=== PATIENT | male | born 1975 ===

== ENCOUNTER 2022-03-18 07:30 | Emergency (ER) | payer SELFPAY ==
--- NOTE | 2022-03-18 08:46 | Emergency Department Report ---
ED General Adult HPI - General Chief complaint: Urogenital-Male Stated complaint: SICK Time Seen by Provider: 03/18/22 08:29 Source: patient Mode of arrival: Ambulatory Limitations: Language Barrier - History of Present Illness Initial comments: Is a 47-year-old male who, EISL, speaks appropriate [place] for safe communication of symptoms, who presents for bilateral lower abdominal pain with hematuria pain is described at 5/10 sharp achy. Patient states history of renal stones. Patient denies nausea vomiting x1 cannot recall fever. Symptoms are exacerbated by movement and voiding. Symptoms are relieved by nothing tried. Patient states he feels sickly. Patient denies other history denies smoking Severity scale (0 -10): 9 - Related Data Previous Rx's Medication Instructions Recorded Last Taken Type Ketorolac [Toradol] 10 mg PO Q6H PRN #12 tab 03/18/22 Unknown Rx levoFLOXacin [Levaquin TAB] 500 mg PO DAILY 7 Days #7 tab 03/18/22 Unknown Rx Allergies Allergy/AdvReac Type Severity Reaction Status Date / Time No Known Allergies Allergy Unverified 03/18/22 07:39 ED Review of Systems ROS: Stated complaint: SICK Other details as noted in HPI Constitutional: malaise. denies: chills, fever Eyes: denies: eye pain, eye discharge, vision change ENT: denies: ear pain, throat pain Respiratory: denies: cough, shortness of breath, wheezing Cardiovascular: denies: chest pain, palpitations Endocrine: no symptoms reported Gastrointestinal: abdominal pain, nausea, vomiting. denies: diarrhea, constipation, melena Genitourinary: urgency, dysuria, frequency, hematuria. denies: discharge, testicular pain, testicular mass Musculoskeletal: denies: back pain, joint swelling, arthralgia Skin: denies: rash, lesions Neurological: denies: headache, weakness, paresthesias, vertigo Psychiatric: denies: anxiety, depression Hematological/Lymphatic: denies: easy bleeding, easy bruising ED Past Medical Hx - Past Medical History Previous Medical History?: Yes Additional medical history: KIDNEY STONES - Surgical History Past Surgical History?: No - Medications Home Medications: Home Medications Medication Instructions Recorded Confirmed Last Taken Type Ketorolac [Toradol] 10 mg PO Q6H PRN #12 tab 03/18/22 Unknown Rx levoFLOXacin [Levaquin TAB] 500 mg PO DAILY 7 Days #7 tab 03/18/22 Unknown Rx ED Physical Exam - General Limitations: Language Barrier General appearance: alert, in no apparent distress - Head Head exam: Present: normocephalic, normal inspection - Eye Eye exam: Present: PERRL - ENT ENT exam: Present: mucous membranes moist - Neck Neck exam: Present: normal inspection, full ROM. Absent: tenderness - Respiratory Respiratory exam: Present: normal lung sounds bilaterally. Absent: respiratory distress, wheezes - Cardiovascular Cardiovascular Exam: Present: regular rate, normal rhythm, normal heart sounds. Absent: systolic murmur, diastolic murmur, rubs, gallop - GI/Abdominal GI/Abdominal exam: Present: tenderness ([place] abdomen suprapubic region), normal bowel sounds. Absent: soft, distended, guarding, rebound, rigid, bruit, hernia - Rectal Rectal exam: Present: deferred - Extremities Exam Extremities exam: Present: normal inspection, full ROM, normal capillary refill. Absent: tenderness - Back Exam Back exam: Present: normal inspection, full ROM, CVA tenderness (R), CVA tenderness (L) - Neurological Exam Neurological exam: Present: alert, oriented X3, CN II-XII intact, normal gait - Expanded Neurological Exam Expanded Patient oriented to: Present: person, place, time Speech: Present: fluid speech Best Eye Response ([place]): (4) open spontaneously Best Motor Response ([place]): (6) obeys commands Best Verbal Response ([place]): (5) oriented [place] Total: 15 - Psychiatric Psychiatric exam: Present: normal affect, normal mood - Skin Skin exam: Present: warm, dry, intact, normal color. Absent: rash ED Course Vital Signs 03/18/22 07:42 Temperature 98.1 F Pulse Rate 71 Respiratory 18 Rate Blood Pressure 142/87 [Right] O2 Sat by Pulse 96 Oximetry ED Medical Decision Making - Lab Data Result diagrams: 03/18/22 09:08 03/18/22 09:08 Labs 03/18/22 03/18/22 03/18/22 09:08 09:08 Unknown WBC 9.8 RBC 4.21 Hgb 14.6 Hct 42.6 MCV 101 H MCH 35 H MCHC 34 RDW 13.0 L Plt Count 248 Lymph % (Auto) 12.3 L [place] % (Auto) 6.7 Eos % (Auto) 1.0 Baso % (Auto) 0.2 Lymph # (Auto) 1.2 [place] # (Auto) 0.7 Eos # (Auto) 0.1 Baso # (Auto) 0.0 Seg Neutrophils % 79.8 H Seg Neutrophils # 7.8 H Sodium 139 Potassium 4.2 Chloride 104.6 Carbon Dioxide 24 Anion Gap 15 BUN 13 Creatinine 0.6 L Estimated GFR > 60 BUN/Creatinine Ratio 22 Glucose 94 Calcium 8.9 Total Bilirubin 0.50 AST 29 ALT 32 Alkaline Phosphatase 118 Total Protein 6.8 Albumin 4.4 Albumin/Globulin Ratio 1.8 Lipase 53 Urine Color Straw Urine Turbidity Clear Specific [place] (Man) 1.004 Ur Protein (Man) Negative Ur Ketones (Man) Negative Ur Nitrite (Man) Negative Urine Bilirubin (Man) Negative Urine Ictotest Not Reportable Leukocyte Esterase (Man) Large Urine WBC (Auto) 129.0 H Urine RBC (Auto) 3.0 U Epithel Cells (Auto) < 1.0 Urine Bacteria (Auto) 1+ Urine RBC (Manual) 4+ Urine WBC Clumps 2+ - Radiology Data Radiology results: report reviewed, image reviewed T ABDOMEN AND PELVIS WITHOUT CONTRAST INDICATION / CLINICAL INFORMATION: r/o obstructive renal stone. TECHNIQUE: Axial CT images were obtained through the abdomen and pelvis without IV contrast. All CT scans at this location are performed using CT dose reduction for ALARA by means of automated exposure control. COMPARISON: None available. FINDINGS: LOWER CHEST: No significant abnormality. LIVER: No significant abnormality. GALLBLADDER: No significant abnormality. BILE DUCTS: No significant abnormality. PANCREAS: No significant abnormality. SPLEEN: No significant abnormality. ADRENALS: No significant abnormality. RIGHT KIDNEY / URETER: No significant abnormality. LEFT KIDNEY / URETER: No significant abnormality. STOMACH / SMALL BOWEL: No significant abnormality. COLON: No significant abnormality. APPENDIX: No significant abnormality. PERITONEUM: No free fluid. No free air. No fluid collection. LYMPH NODES: No significant adenopathy. AORTA / ARTERIES: No significant abnormality. IVC / VEINS: No significant abnormality. URINARY BLADDER: No significant abnormality. REPRODUCTIVE ORGANS: No significant abnormality. ADDITIONAL FINDINGS: None. SKELETAL SYSTEM: Lower lumbar spine degenerative changes. No acute abnormality. IMPRESSION: 1. No significant abnormality. Signer Name: Sonny Rico MD Signed: 03/18/2022 10:32 AM Workstation Name: [email or web address] Transcribed By: JW Dictated By: SONNY RICO MD Electronically Authenticated By: SONNY RICO MD Signed Date/Time: 03/18/22 1032 DD/ 1030 TD/TT: - Medical Decision Making UA noted for leukocytes white blood cells bacteria, CT no obstructing renal stone or renal stone. Symptoms are improved with medication given in ED. Plan DC to home with prescriptions. Follow-up with urology, follow-up primary care doctor return to emergency department for symptoms worsen. He verbalized agreement and understanding with discharge plan. Patient will be DC'd home in stable condition at this time, patient is tolerating p.o. intake without nausea or vomiting. Critical care attestation.: If time is entered above; I have spent that time in minutes in the direct care of this critically ill patient, excluding procedure time. ED Disposition Clinical Impression: UTI (urinary tract infection) Qualifiers: Urinary tract infection type: acute cystitis Hematuria presence: with hematuria Qualified Code(s): N30.01 - Acute cystitis with hematuria Disposition: HOME / SELF CARE / HOMELESS Is pt being admited?: No Does the pt Need Aspirin: No Condition: Stable Instructions: Urinary Tract Infection, Adult, [id number] Additional Instructions: Take medications as prescribed, follow-up with urologist in 2 to 3 days. Follow-up with your primary care doctor in 2 to 3 days. Return to emergency department should symptoms worsen. Prescriptions: levoFLOXacin [Levaquin TAB] 500 mg PO DAILY 7 Days #7 tab Ketorolac [Toradol] 10 mg PO Q6H PRN #12 tab PRN Reason: Pain Referrals: MISSY MITCHELL MD [Staff Physician] - 3-5 Days Forms: Work/School Release Form(ED) Time of Disposition: 11:09
[2022-03-18 09:22] LABS: Color,Urine Straw (Yellow)
[2022-03-18 09:27] LABS: Bacteria,Urine 1+ /HPF (Negative)
[2022-03-18] MEDS ORDERED: KETOROLAC 30 MG/1 ML INJ IV ONE (09:39)
[2022-03-18] MEDS ORDERED: SODIUM CHLORIDE 0.9% 1000 ML 1,000 ML IV ONE (09:39)
[2022-03-18] MEDS ORDERED: ONDANSETRON 4 MG/2 ML INJ IV ONE (09:39)
[2022-03-18] MEDS ORDERED: cefTRIAXone/NS 1 GM/50 ML 1 GM/50 ML BAG IV ONE (09:56)
[2022-03-18 10:28] LABS: Basophils % (Auto) 0.2 % (0.0-1.8); Eosinophils # (Auto) 0.1 K/mm3 (0.0-0.4); Hematocrit 42.6 % (35.5-45.6); Hemoglobin 14.6 gm/dl (11.8-15.2); Lymphocytes # (Auto) 1.2 K/mm3 (1.2-5.4); Lymphocytes % (Auto) 12.3 % (13.4-35.0); Mean Corpuscular HGB Conc 34 % (32-34); Mean Corpuscular Volume 101 fl (84-94); Monocytes # (Auto) 0.7 K/mm3 (0.0-0.8); Monocytes % (Auto) 6.7 % (0.0-7.3); Platelet Count 248 K/mm3 (140-440); Red Blood Count 4.21 M/mm3 (3.65-5.03)
--- NOTE | 2022-03-18 10:36 | Cat Scan Report ---
CT ABDOMEN AND PELVIS WITHOUT CONTRAST INDICATION / CLINICAL INFORMATION: r/o obstructive renal stone. TECHNIQUE: Axial CT images were obtained through the abdomen and pelvis without IV contrast. All CT scans at this location are performed using CT dose reduction for ALARA by means of automated exposure control. COMPARISON: None available. FINDINGS: LOWER CHEST: No significant abnormality. LIVER: No significant abnormality. GALLBLADDER: No significant abnormality. BILE DUCTS: No significant abnormality. PANCREAS: No significant abnormality. SPLEEN: No significant abnormality. ADRENALS: No significant abnormality. RIGHT KIDNEY / URETER: No significant abnormality. LEFT KIDNEY / URETER: No significant abnormality. STOMACH / SMALL BOWEL: No significant abnormality. COLON: No significant abnormality. APPENDIX: No significant abnormality. PERITONEUM: No free fluid. No free air. No fluid collection. LYMPH NODES: No significant adenopathy. AORTA / ARTERIES: No significant abnormality. IVC / VEINS: No significant abnormality. URINARY BLADDER: No significant abnormality. REPRODUCTIVE ORGANS: No significant abnormality. ADDITIONAL FINDINGS: None. SKELETAL SYSTEM: Lower lumbar spine degenerative changes. No acute abnormality. IMPRESSION: 1. No significant abnormality. Signer Name: Chris Nunes MD Signed: 03/18/2022 10:32 AM Workstation Name: [email or web address]
[2022-03-18 10:42] LABS: Alanine Aminotransferase 32 units/L (7-56); Albumin 4.4 g/dL (3.9-5); Blood Urea Nitrogen 13 mg/dL (9-20); Calcium 8.9 mg/dL (8.4-10.2); Hemolysis Index 13
[2022-03-18 10:45] LABS: BUN/Creatinine Ratio 22
[2022-03-18 12:11] VITALS: BP 128/95
== END 2022-03-18 12:09 | disposition home or self-care (01) ==
LOC: ED 07:30
DX: N39.0 Urinary tract infection, site not specified (principal); R31.9 Hematuria, unspecified; Z79.899 Other long term (current) drug therapy
CPT/HCPCS: 36415; 74176; 80053; 81001; 83690; 85025; 96365; 96375; 99284; J0696; J1885; J2405; J7030